=== PATIENT | male | born 1985 | race Caucasian/White ===

== ENCOUNTER 2023-07-19 00:15 | Emergency (ER) | payer MEDICAID ==
[~2023-07-19] VITALS: Ht 182.9 cm; Wt 86.2 kg
[2023-07-19 00:23] VITALS: BP_SYST 119; PULSE 90; RESP 16; TEMP 97.6; O2SAT 99
== END 2023-07-19 01:12 ==
LOC: SED 00:15
DX: Z02.89 Encounter for other administrative examinations (principal); Z79.899 Other long term (current) drug therapy
CPT/HCPCS: 99283